=== PATIENT | female | born 1990 | race American Indian/Alaskan Native ===

== ENCOUNTER 2017-02-13 11:43 | Emergency (ER) | payer OTHER, BC ==
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
[2017-02-13] MEDS ORDERED: MOTRIN PO ONE (18:36)
[2017-02-13 19:47] VITALS: BP 120/60
--- NOTE | 2017-02-14 08:26 | XRay Report ---
ROUTINE CHEST, TWO VIEWS: PA and lateral views demonstrate the heart and mediastinal contour to be of normal size and shape. The lungs are clear and fully expanded and the soft tissues and bony structures are normal. IMPRESSION: Normal study.
== END 2017-02-13 20:15 | disposition home or self-care (01) ==
LOC: ED 11:43
DX: S29.9XXA Unspecified injury of thorax, initial encounter (principal); V89.2XXA Person injured in unspecified motor-vehicle accident, traffic, initial encounter; V49.49XA Driver injured in collision with other motor vehicles in traffic accident, initial encounter; X58.XXXA Exposure to other specified factors, initial encounter; Y93.9 Activity, unspecified; Y92.9 Unspecified place or not applicable; Y99.9 Unspecified external cause status
CPT/HCPCS: 71020; 81025; 99284